=== PATIENT | female | born 1970 | race African-American/Black ===

== ENCOUNTER 2017-12-17 20:38 | Emergency (ER) | payer MEDICAID ==
[~2017-12-17] VITALS: Ht 165.1 cm; Wt 65.0 kg
[2017-12-17 22:11] LABS: BASOPHILS % 0.7 % (0.0-2.0); EOSINOPHILS % 0.7 % (0.0-5.0); HEMATOCRIT. 37.6 % (36.0-48.0); HEMOGLOBIN. 12.6 g/dL (12.0-16.0); LYMPHOCYTES % 52.7 % (20.0-50.0); MEAN CORPUSCULAR HEMOGLOBIN 30.6 pg (28.0-32.0); MEAN CORPUSCULAR VOLUME 91.2 fL (81.0-99.0); MEAN PLATELET VOLUME 10.5 fl (7.4-10.4); NEUTROPHILS % 37.9 % (40.0-76.0); PLATELET 179 x1000/uL (130-400); RED BLOOD CELL COUNT 4.13 mill/uL (4.2-5.4); RED CELL DISTRIBUTION WIDTH 12.5 % (11.6-14.6)
[2017-12-17 22:20] LABS: CHLORIDE 106 mEq/L (98-107)
[2017-12-17 22:22] LABS: ETHANOL BLOOD < 10 mg/dL
[2017-12-17 22:27] LABS: CREATINE KINASE 81 IU/L (26-192)
[2017-12-17 22:28] LABS: TROPONIN I < 0.02 ng/mL (0.00-0.04)
[2017-12-18 00:07] VITALS: BP 111/80
== END 2017-12-18 00:08 | disposition home or self-care (01) ==
LOC: ER 21:57
DX: M54.12 Radiculopathy, cervical region (principal); R07.89 Other chest pain; F12.10 Cannabis abuse, uncomplicated; Z87.891 Personal history of nicotine dependence
CPT/HCPCS: 36415; 70450; 71045; 80053; 82550; 83880; 84443; 84484; 85025; 85379; 93005; 99285; G0482; Z7610